=== PATIENT | male | born 1995 | race American Indian/Alaskan Native ===

== ENCOUNTER 2020-06-03 19:58 | Emergency (ER) | payer SELFPAY ==
[2020-06-03 21:16] VITALS: BP 144/97
== END 2020-06-03 23:00 | disposition left against medical advice (07) ==
LOC: ED 19:58
DX: K08.89 Other specified disorders of teeth and supporting structures (principal); Z53.21 Procedure and treatment not carried out due to patient leaving prior to being seen by health care provider